=== PATIENT | female | born 1975 | race Caucasian/White ===

== ENCOUNTER 2023-04-13 06:12 | Day surgery (SDC) | payer BC, MEDICAID ==
[2023-04-13] MEDS ORDERED: fentaNYL 100 MCG/2 ML SDV IV ONE (06:13)
[2023-04-13] MEDS ORDERED: Propofol 200 MG/20 ML SDV IV ONE (06:13)
[2023-04-13] MEDS ORDERED: Ketamine 500 mg/10 ML MDV IV ONE (06:13)
[2023-04-13] MEDS ORDERED: Midazolam 1 MG/ML 2 ML SDV IV ONE (06:13)
[2023-04-13] MEDS ORDERED: Lactated Ringers 1,000 ML IV SCH (06:15)
[2023-04-13] MEDS ORDERED: Sodium Chloride 0.9% 10 ML Syringe FLUSH PRN (06:15)
[2023-04-13] MEDS ORDERED: Simethicone Drops 40 MG/0.6 ML 30 ML Bottle ONE (07:14)
== END 2023-04-13 09:07 | disposition home or self-care (01) ==
LOC: FB.SDS 06:12
PROVIDERS: ATTEND Surgery
DX: D12.6 Benign neoplasm of colon, unspecified (principal); K63.5 Polyp of colon; K52.9 Noninfective gastroenteritis and colitis, unspecified; F17.210 Nicotine dependence, cigarettes, uncomplicated
CPT/HCPCS: 00811; 45384; 45385; 88305; A9270; J2250; J2704; J3010; J3490; J7120